=== PATIENT | female | born 1995 | race Caucasian/White ===

== ENCOUNTER 2021-09-04 08:04 | Emergency (ER) | payer OTHER ==
[~2021-09-04] VITALS: Ht 157.5 cm; Wt 50.0 kg
[2021-09-04 08:13] VITALS: BP 104/72
[2021-09-04] MEDS ORDERED: ACETAMINOPHEN 325MG TABLET PO STA (08:50)
[2021-09-04 09:24] LABS: BASOPHILS % 0.2 % (0.0-2.0); EOSINOPHILS % 1.1 % (0.0-5.0); HEMATOCRIT. 34.6 % (36.0-48.0); HEMOGLOBIN. 11.9 g/dL (12.0-16.0); LYMPHOCYTES % 22.8 % (20.0-50.0); MEAN CORPUSCULAR HEMOGLOBIN 29.9 pg (28.0-32.0); MEAN PLATELET VOLUME 10.2 fl (7.4-10.4); MONOCYTES % 3.8 % (2.0-8.0); NEUTROPHILS % 72.1 % (40.0-76.0); PLATELET 165 x1000/uL (130-400); RED BLOOD CELL COUNT 3.97 mill/uL (4.2-5.4); RED CELL DISTRIBUTION WIDTH 13.2 % (11.6-14.6)
[2021-09-04 09:29] LABS: CHLORIDE 108 mEq/L (98-107)
[2021-09-04 09:54] LABS: B-HCG QUANTITATIVE 20596 mIU/mL (<3)
[2021-09-04] MEDS ORDERED: TOPUD PO (10:46)
== END 2021-09-04 11:18 | disposition home or self-care (01) ==
LOC: ER 08:04
DX: O99.892 Other specified diseases and conditions complicating childbirth (principal); R10.2 Pelvic and perineal pain; M25.552 Pain in left hip; Z3A.26 26 weeks gestation of pregnancy; W01.0XXA Fall on same level from slipping, tripping and stumbling without subsequent striking against object, initial encounter; Y93.89 Activity, other specified; Y92.89 Other specified places as the place of occurrence of the external cause; Y99.0 Civilian activity done for income or pay
CPT/HCPCS: 36415; 76805; 80053; 84702; 85025; 86850; 86900; 99284